=== PATIENT | male | born 1975 | race Caucasian/White ===

== ENCOUNTER 2019-10-04 12:20 | Emergency (ER) | payer OTHER | END 2019-10-04 15:18 | disposition other institution (70) | LOC: ED 12:20 | DX: Z02.89 Encounter for other administrative examinations (principal) ==

== ENCOUNTER 2019-10-04 12:20 | Emergency (ER) | payer SELFPAY ==
[~2019-10-04] VITALS: Ht 182.9 cm; Wt 88.5 kg
[2019-10-04 13:52] LABS: BASOPHIL % 0.6 % (0-2); PLATELET COUNT 264 x10^3mcL (130-400); RED CELL DISTRIBUTION WIDTH 14.3 % (11.5-14.5)
[2019-10-04 13:55] LABS: CARBON DIOXIDE 24.5 mmol/L (21-32); CHLORIDE SERUM 109 mmol/L (98-107); CREATININE SERUM 0.7 mg/dL (0.7-1.3); GFR1 > 60 mL/min; GLUCOSE SERUM 80 mg/dL (74-106); POTASSIUM SERUM 4.5 mmol/L (3.5-5.1); SODIUM SERUM 142 mmol/L (136-145)
[2019-10-04 14:11] LABS: ALBUMIN 3.7 g/dL (3.4-5.0); ALKALINE PHOSPHATASE 80 U/L (46-116); ALT/SGPT 69 U/L (16-63); AST/SGOT 32 U/L (15-37); BILIRUBIN TOTAL 0.28 mg/dL (0.20-1.00)
[2019-10-04 14:20] LABS: CALCIUM 8.4 mg/dL (8.5-10.1)
[2019-10-04 15:17] VITALS: BP 117/80
== END 2019-10-04 15:18 | disposition other institution (70) ==
LOC: ED 12:20
PROVIDERS: Emergency Medicine
DX: F43.0 Acute stress reaction (principal); I10 Essential (primary) hypertension; H53.8 Other visual disturbances
CPT/HCPCS: 36415; J8597; Q0092